=== PATIENT | female | born 1985 ===

== ENCOUNTER → 2020-04-02 | Outpatient (CLI) | payer SELFPAY | LOC: LAB SHORT 13:46 → LAB 13:46 | DX: D48.5 Neoplasm of uncertain behavior of skin (principal); L72.8 Other follicular cysts of the skin and subcutaneous tissue; L81.8 Other specified disorders of pigmentation; L81.4 Other melanin hyperpigmentation; D22.5 Melanocytic nevi of trunk; L08.9 Local infection of the skin and subcutaneous tissue, unspecified; Z71.89 Other specified counseling | CPT/HCPCS: 87070; 87077; 87186; 87205 ==